=== PATIENT | female | born 1990 | race Two or more races ===

== ENCOUNTER 2017-04-11 17:18 | Emergency (ER) | payer MEDICAID | END 2017-04-11 17:24 | disposition left against medical advice (07) | DX: Z53.21 Procedure and treatment not carried out due to patient leaving prior to being seen by health care provider (principal) ==

== ENCOUNTER 2017-07-22 12:26 | Emergency (ER) | payer MEDICAID ==
[2017-07-22 12:38] VITALS: RESP 18
--- NOTE | 2017-07-22 13:35 | EDPHY ---
H & P Stated Complaint: Cold like symtoms - cough, sinus congestion for 1 month Time Seen by Provider: 07/22/17 13:35 HPI/ROS: HPI: This is a 27-year-old female presents with Chief Complaint: Cold like symptoms - cough, sinus congestion for 1 month Location: Chest, sinus Quality: Congestion Duration: 1 month Signs and Symptoms: No wheezing, no headache, no neck stiffness, + nonproductive cough, + sinus pressure, + nasal congestion, no wheeing, shortness of breath, no chest pain Timing: Worsening Severity: moderate Context: Patient presents with worsening cold-like symptoms of nonproductive cough and sinus pressure accompanied by nasal congestion over the last month that is worsening despite using Mucinex. LMP was 1 week ago. Denies ear pain, fever, chills, neck stiffness. No history of lung disease. Modifying Factors: See above Comment: ROS: see HPI Constitutional: No fever, no chills, no weight loss Eyes: No blurred vision Respiratory: No shortness of breath, no cough Cardiovascular: No chest pain Gastrointestinal: No nausea, no vomiting, no diarrhea Genitourinary: No dysuria Extremities: No myalgias Neurologic: No weakness, no numbness Skin: No rashes Hematologic: No bruising, no bleeding MEDICAL/SURGICAL/SOCIAL HISTORY: Medical/Surgical history: C section, L knee surg, latex allergy, migraines Social history: with children CONSTITUTIONAL: awake and alert, no obvious distress HEENT: Atraumatic and normocephalic, PERRL, EOMI. Tympanic membranes clear. Nares moderate mucosal edema and erythema; green nasal discharge. Bilateral maxillary reproducible sinus tenderness. Oropharynx clear, no exudate and moist pink mucosa. Airway patent. No lymphadenopathy. No meningismus. Cardiovascular: Normal S1/S2, regular rate, regular rhythm, without murmur rub or gallop. PULMONARY/CHEST: Symmetrical and nontender. Clear to auscultation bilaterally. Good air movement. No accessory muscle usage. ABDOMEN: Soft, nondistended, nontender, no rebound, no guarding, no peritoneal signs, no masses or organomegaly. No CVAT. EXTREMITIES: 2/2 pulses, strength 5/5, no deformities, no clubbing, no cyanosis or edema. NEUROLOGICAL: no focal neuro deficits. GCS 15. SKIN: Warm and dry, no erythema. no rash. Good capillary refill. Source: Patient Exam Limitations: No limitations - Personal History LMP (Females 10-55): 1-7 Days Ago Current Tetanus Diphtheria and Acellular Pertussis (TDAP): Yes - Medical/Surgical History Hx Asthma: No Hx Chronic Respiratory Disease: No Hx Diabetes: No Hx Cardiac Disease: No Hx Renal Disease: No Hx Cirrhosis: No Hx Alcoholism: No Hx HIV/AIDS: No Hx Splenectomy or Spleen Trauma: No Other PMH: PREVIOUS C section, L knee surg, latex allergy, migraines - Social History Smoking Status: Former smoker Constitutional: Initial Vital Signs Temperature (C) 36.3 C 07/22/17 12:35 Heart Rate 95 07/22/17 12:35 Respiratory Rate 18 07/22/17 12:35 Blood Pressure 116/91 H 07/22/17 12:35 O2 Sat (%) 98 07/22/17 12:35 O2 Delivery Mode Room Air Allergies/Adverse Reactions: latex Allergy (Verified 12/08/15 23:26) Home Medications: Medication Instructions Recorded AZITHROMYCIN [Z-PACK] 250 mg PO DAILY #6 tab 07/22/17 Benzonatate [Tessalon Pearles (RX)] 100 mg PO Q6 PRN #12 cap 07/22/17 predniSONE [predniSONE TAPER] 10 mg PO DAILY 6 Days ea 07/22/17 Medical Decision Making - Diagnostics Imaging Results: Imaging Impressions Chest X-Ray 07/22/17 13:38 Impression: No acute findings in the chest. ED Course/Re-evaluation: Chest x-ray and oral medications ordered Given Tessalon Perles and Prednisone 60 mg Symptoms greater than 10 days; start antibiotics No signs of hypoxia/wheezing/pneumonia/pneumothorax/sepsis/pulmonary embolism Differential Diagnosis: Differential diagnosis includes but is not limited sinusitis, respiratory infection, community-acquired pneumonia, influenza. - Data Points Medications Given: Discontinued Medications Benzonatate (Tessalon Pearles) 200 mg PO EDNOW ONE Stop: 07/22/17 13:39 Last Admin: 07/22/17 14:05 Dose: 200 mg Prednisone (Prednisone) 60 mg PO EDNOW ONE Stop: 07/22/17 13:39 Last Admin: 07/22/17 14:05 Dose: 60 mg Departure - Departure Disposition: Home, Routine, Self-Care Clinical Impression: Bronchitis Sinusitis Qualifiers: Sinusitis location: other Chronicity: acute Recurrence: non-recurrent Qualified Code(s): J01.80 - Other acute sinusitis Condition: Good Instructions: Sinusitis (ED), Acute Bronchitis (ED) Additional Instructions: Chest x-ray today is unremarkable. You do not have pneumonia. Referrals: Nelly Ivey MD [Primary Care Provider] - As per Instructions Prescriptions: AZITHROMYCIN [Z-PACK] 250 mg PO DAILY #6 tab Benzonatate [Tessalon Pearles (RX)] 100 mg PO Q6 PRN #12 cap PRN Reason: Cough, Moderate predniSONE [predniSONE TAPER] 10 mg PO DAILY 6 Days ea
[2017-07-22] MEDS ORDERED: predniSONE 20 MG TAB PO ONE (13:38)
[2017-07-22] MEDS ORDERED: BENZONATATE 100 MG CAP PO ONE (13:38)
[2017-07-22 15:18] VITALS: BP 92/70; PULSE 82; TEMP 98.6; O2SAT 99
== END 2017-07-22 15:17 | disposition home or self-care (01) ==
DX: J20.9 Acute bronchitis, unspecified (principal); J01.00 Acute maxillary sinusitis, unspecified; Z87.891 Personal history of nicotine dependence; Z91.040 Latex allergy status

== ENCOUNTER 2017-11-09 20:49 | Emergency (ER) | payer MEDICAID ==
[2017-11-09 20:56] VITALS: TEMP 97.5
[2017-11-09] MEDS ORDERED: KETOROLAC 15 MG/1 ML SDV IVP/IM ONE (21:03)
[2017-11-09] MEDS ORDERED: DEXAMETHASONE 4 MG/ML VIAL IVP ONE (21:03)
--- NOTE | 2017-11-09 21:06 | EDPHY ---
H & P Stated Complaint: MIGRAINE/N/V/ L EYE VISION PROBLEM Time Seen by Provider: 11/09/17 20:57 HPI/ROS: CHIEF COMPLAINT: "Migraine headache x3 days" HISTORY OF PRESENT ILLNESS: 27-year-old female history of chronic migraine headache complaining 3 days of migraine headaches, feels like her usual migraine headaches. Not thunderclap. Not worst headache of life. Positive photophobia. Positive nausea. No vomiting. No gait instability. No trauma. No head or neck manipulation or trauma. REVIEW OF SYSTEMS: A ten point review of systems was performed and is negative with the exception of the items mentioned in the HPI PAST MEDICAL & SURGICAL HISTORY: Chronic migraine headache SOCIAL HISTORY:has 2 children PHYSICAL EXAM (Prior to examination, patient consented to physical exam, hands were washed and my usual and customary physical exam procedures followed) 1) GENERAL: [Well-developed, well-nourished, alert and oriented. Appears uncomfortable, tearful 2) HEAD: Normocephalic, atraumatic 3) HEENT: Pupils equal, round, reactive to light bilaterally. Sclera anicteric. Positive photophobia Nasopharynx, oropharynx, clear, no lesions. Ears bilaterally with normal tympanic membranes. 4) NECK: Full range of motion, no meningeal signs. 5) LUNGS: Clear auscultation bilaterally, no wheezes, no rhonchi, no retractions. 6) HEART: Regular rate and rhythm, no murmur, no heave, no gallop. 7) ABDOMEN: No guarding, no rebound, no focal tenderness, negative McBurney's, negative Antonio's, negative Rovsing's, negative peritoneal sign, 8) MUSCULOSKELETAL: Moving all extremities, no focal areas of tenderness, no obvious trauma. No peripheral edema or discoloration. 9) BACK: No CVA tenderness, no midline vertebral tenderness, no fluctuance, no step-off, no obvious trauma, no visual or palpable abnormality. 10) SKIN: No rash, no petechiae. 11) Psychiatric: Patient is oriented X 3, there is no agitation. 12) NEURO: Awake, alert, and oriented to person, place and time. Answers questions appropriately. There were no obvious focal neurologic abnormalities. No cerebellar dysfunction. Cranial nerves 2 through to 12 intact. Normal steady gait. Upper and lower extremities bilaterally with strength 5 / 5, reflexes 2+. DIFFERENTIAL DIAGNOSIS: In no particular order, including but not limited to subarachnoid hemorrhage, migraine headache, tension headache and infectious causes such as meningitis, pharyngitis and sinusitis. The patient understands that this diagnosis is provisional and can never be 100% accurate. Usual and customary warnings were given concerning the clinical impression and all the patient's questions were answered. The patient was instructed to return to the emergency department should her symptoms worsen or return, or develop any new symptoms, otherwise to followup as directed in discharge instructions. This is a partial list of diagnoses considered. These considerations are based on history, physical exam, past history and reassessment. - Personal History LMP (Females 10-55): Unknown Current Tetanus Diphtheria and Acellular Pertussis (TDAP): Yes - Medical/Surgical History Hx Asthma: No Hx Chronic Respiratory Disease: No Hx Diabetes: No Hx Cardiac Disease: No Hx Renal Disease: No Hx Cirrhosis: No Hx Alcoholism: No Hx HIV/AIDS: No Hx Splenectomy or Spleen Trauma: No Other PMH: PREVIOUS C section, L knee surg, latex allergy, migraines - Social History Smoking Status: Former smoker Constitutional: Initial Vital Signs Temperature (C) 36.4 C 11/09/17 20:53 Heart Rate 78 11/09/17 20:53 Respiratory Rate 20 11/09/17 20:53 Blood Pressure 122/77 H 11/09/17 20:53 O2 Sat (%) 100 11/09/17 20:53 O2 Delivery Mode Room Air Allergies/Adverse Reactions: latex Allergy (Verified 12/08/15 23:26) Home Medications: Medication Instructions Recorded NK [No Known Home Meds] 11/09/17 Medical Decision Making ED Course/Re-evaluation: 9:03 p.m.: I have evaluated the patient. The patient has a nonfocal neurologic exam. The patient drove herself to the emergency department will plan on driving home. Will administer round of analgesia include Reglan, Toradol, Decadron. 10:07 p.m.: Re-evaluation, sleeping feeling improvement. She would like to be discharged. Discharge she remains with a nonfocal neurologic exam. Today is Tuesday. She has an appointment with Dr. Mistry, neurology on Tuesday. I recommend she keep this appointment. I think that subarachnoid hemorrhage, intracranial mass, malignancy, less than likely in this patient at this time. I do not think that the benefits of CT imaging, lumbar puncture, outweigh the risks in this patient. Plan will be discharge. Usual and customary headache precautions and instructions provided. Care of patient under supervision of secondary supervising physician Dr Wade - Data Points Medications Given: Discontinued Medications Dexamethasone (Decadron Injection) 8 mg IVP EDNOW ONE Stop: 11/09/17 21:04 Last Admin: 11/09/17 21:22 Dose: 8 mg Sodium Chloride (Ns) 1,000 mls @ 0 mls/hr IV ONCE ONE PRN Reason: Wide Open Stop: 11/09/17 21:30 Last Admin: 11/09/17 21:31 Dose: 1,000 mls Ketorolac Tromethamine (Toradol) 15 mg IVP/IM EDNOW ONE Stop: 11/09/17 21:04 Last Admin: 11/09/17 21:23 Dose: 15 mg Metoclopramide HCl (Reglan Injection) 10 mg IVP EDNOW ONE Stop: 11/09/17 21:04 Last Admin: 11/09/17 21:27 Dose: 10 mg Ondansetron HCl (Zofran) 4 mg IVP EDNOW ONE Stop: 11/09/17 21:30 Last Admin: 11/09/17 21:32 Dose: 4 mg Departure - Departure Disposition: Home, Routine, Self-Care Clinical Impression: Headache Qualifiers: Headache type: other headache syndrome Qualified Code(s): G44.89 - Other headache syndrome Condition: Good Instructions: Acute Headache (ED) Additional Instructions: RETURN TO THE ED IMMEDIATELY IF YOUR HEADACHE WORSENS, IF YOU DEVELOP A FEVER, NECK PAIN OR NECK STIFFNESS, OR IF YOU BECOME CONFUSED OR ABNORMALLY DROWSY. Referrals: Nelly Ivey MD [Primary Care Provider] - 1-2 days without fail Leslie Mistry DO [Non Staff and Non MD] - 11/14/17 (Keep your appointment with Dr. Mistry on Tuesday)
[2017-11-09] MEDS: METOCLOPRAMIDE 10 MG/2 ML VIAL IVP ONE ×2 (21:23→21:27)
[2017-11-09] MEDS ORDERED: NS 1,000 ML IV ONE (21:29)
[2017-11-09] MEDS ORDERED: ONDANSETRON 4 MG/2 ML VIAL IVP ONE (21:29)
[2017-11-09 22:29] VITALS: BP 138/89; PULSE 77; RESP 18; O2SAT 96
== END 2017-11-09 22:28 | disposition home or self-care (01) ==
DX: G44.89 Other headache syndrome (principal); Z87.891 Personal history of nicotine dependence; Z91.040 Latex allergy status
CPT/HCPCS: 96374; J1100; J1885; J2405; J2765